=== PATIENT | male | born 1985 | race Caucasian/White ===

== ENCOUNTER 2018-01-31 17:49 | Emergency (ER) | payer SELFPAY ==
[~2018-01-31] VITALS: Ht 182.9 cm; Wt 79.4 kg
[2018-01-31] MEDS ORDERED: CEFTRIAXONE SOD 1 GM VIAL IM ONE (18:00)
[2018-01-31] MEDS ORDERED: AZITHROMYCIN 250 MG TAB PO ONE (18:00)
[2018-01-31] MEDS ORDERED: DIPHENHYDRAMINE HCL 25 MG CAP PO ONE (18:30)
--- OUTSIDE RECORDS SUMMARY | 2018-02-08 12:09 | XMS REPORT ---
Author Author [facility] Address Unknown Phone Unavailable Care Team Providers Care Head Host/Hostess Name Role Phone Unavailable Unavailable Payers Payer Name Policy Type Policy Number Effective Date Expiration Date Problems This patient has no known problems. Allergies, Adverse Reactions, Alerts Allergy Name Allergy Type Status Severity Reaction(s) Onset Date Inactive Date Treating Clinician Comments ceftriaxone DA Active U 2017-12-28 00:00:00 No Known Allergies DA Active U 2017-12-18 00:00:00 Medications This patient has no known medications.
== END 2018-01-31 18:28 | disposition left against medical advice (07) ==
LOC: ER 17:49
DX: R30.0 Dysuria (principal)